=== PATIENT | female | born 1975 | race Caucasian/White ===

== ENCOUNTER 2022-07-08 10:44 | Emergency (ER) | payer OTHER, SELFPAY ==
--- NOTE | ~2022-07-08 | XR_ITS ---
EXAMINATION: XR abdomen/kub 1V DATE: 07/08/2022 12:32 INDICATION: Low abdominal pain. TECHNIQUE: A supine view of the abdomen on 2 radiographs was obtained. COMPARISON: None. FINDINGS: There is dilated small bowel in left abdomen. The colon is decompressed. There is a left in ternal ureteral stent in expected position. There is a lap band at the proximal stomach. Surgical cli ps in the right upper quadrant are likely from cholecystectomy. IMPRESSION: 1. Dilated small bowel, consistent with adynamic ileus versus small bowel obstruction. Reviewed, dictated and finalized at location A. NDANT CHILD ACTIVITY IMPRESSION: 1. Dilated small bowel, consistent with adynamic ileus versus small bowel obstr uction.
--- NOTE | ~2022-07-08 | CT_ITS ---
EXAMINATION: CT abdomen pelvis w con DATE: 07/08/2022 13:23 INDICATION: Abdominal pain. TECHNIQUE: Computed tomography (CT) of the abdomen and pelvis was performed with 100 mL Omnipaque 350 intravenous contrast. Automated exposure control and iterative reconstruction technique were employe d. The dose-length product was 1022.07 mGy-cm. COMPARISON: Abdomen radiographs 07/08/2022 FINDINGS: The visualized portions of the lung bases demonstrate mild atelectasis. No pleural effusion . The heart size is normal. No pericardial effusion. The liver is normal. There are changes of cholec ystectomy. The spleen, pancreas, adrenal glands, and right kidney are normal. There are two 2 mm ston es in left kidney. There is a left internal ureteral stent in expected position. There is diverticulo sis of the colon without evidence of diverticulitis. The appendix is normal. There is mildly dilated small bowel without focal transition point. There is a lap band around the proximal stomach. There ar e no pathologically enlarged lymph nodes. There is no free intraperitoneal fluid. There is mild thora columbar spondylosis. IMPRESSION: 1. Mildly dilated small bowel, likely adynamic embolus. 2. Small nonobstructing left kidney stones. Left internal ureteral stent in expected position. Reviewed, dictated and finalized at location A. S IDENTIFICATION TECHNICIAN IMPRESSION: 1. Mildly dilated small bowel, likely adynamic embolus. 2. Small nonobstructing left kidney stones. Left internal ureteral stent in exp ected position.
[2022-07-08 10:47] VITALS: BP 146/86; PULSE 81; RESP 16; TEMP 36.9; O2SAT 99
[2022-07-08 11:39] LABS: Add Urine Microscopic? YES; Appearance Urine Clear (Clear); Basophils Absolute Auto 0.1 K/mm3 (0.0-0.1); Basophils Percent Auto 1.1 % (0.2-1.2); Bilirubin Urine Negative (Negative); Blood Urine 2+ (Negative); Color Urine Straw (Yellow); Eosinophils Absolute Auto 0.4 K/mm3 (0-0.3); Eosinophils Percent Auto 4.7 % (0-4.4); Glucose Urine UA Negative (Negative); Hematocrit 46.3 % (37.0-47.0); Hemoglobin 14.7 g/dL (12.0-15.0); Immature Granulocyte Absolute 0.03 K/mm3 (0.00-0.031); Immature Granulocyte Percent A 0.4 % (0-0.5); Ketones Urine Negative (Negative); Leukocyte Esterase Ur 1+ LEU/UL (Negative); Lymphocytes Absolute Auto 2.53 K/mm3 (0.9-3.2); Lymphocytes Percent Auto 29.6 % (18.3-44.2); Mean Corpuscular HGB Conc 31.7 g/dl (32-36); Mean Corpuscular Hemoglobin 31.1 pg (26-34); Mean Corpuscular Volume 97.9 fl (80-100); Mean Platelet Volume 10.2 fl (7.4-10.4); Monocytes Absolute Auto 0.5 K/mm3 (0.1-0.6); Neutrophils Percent Auto 58.2 % (45.5-73.1); Nitrate Urine Negative (Negative); Platelet Count Result 304 k/mm3 (150-375); Protein Urine Negative (Negative); Red Blood Count 4.73 M/mm3 (4.2-5.4); Red Cell Distribution Width 14.1 % (11.5-14.5); Specific Grav Ur <= 1.005 (1.001-1.035); Urobilinogen Urine 0.2 mg/dL (<2.0); White Blood Count 8.6 K/mm3 (4.5-10.0)
[2022-07-08 11:58] LABS: Mucus Urine Rare /lpf; RBC Urine 0-2 /hpf (0-2); Squamous Epithelial Cell Urine Rare /hpf (Few)
--- NOTE | 2022-07-08 12:00 | ED.FEMALEGU ---
HPI - Female Genitourinary General Chief complaint: Urogenital-Female Stated complaint: pcp thinks i have an infected kidney stent Time Seen by Provider: 07/08/22 11:07 Source: patient Mode of arrival: ambulatory Limitations: no limitations History of Present Illness HPI Narrative: This is a 46 year old female that presents to the ER for low abdominal pain ongoing over the last couple of days. She had a left kidney stone for which she had lithotripsy and a stent placed. This was done at [facility] by Dr. Damon in the middle of June. She has follow up with her Urologist on the 12th of this month. Reports she was started on Cephalexin by urgent care for a possible UTI. Reports the burning pain she was having has resolved, but she is continuing to have low abdominal pain and flank pain. Denies fever or vomiting. Related Data Allergies Allergy/AdvReac Type Severity Reaction Status Date / Time No Known Allergies Allergy Verified 07/08/22 10:50 Review of Systems Review of Systems: CONSTITUTIONAL: Denies fever GASTROINTESTINAL: Reports abdominal pain. Denies nausea, vomiting GENITOURINARY: Denies dysuria or hematuria. All systems reviewed & are unremarkable except as noted in HPI and below PMFSH Past Medical History Medical History (Updated 07/08/22 @ 15:25 by Herminia Webster PA-C) History of anxiety History of gastroesophageal reflux (GERD) Social History Social History (Updated 07/08/22 @ 12:14 by Herminia Webster PA-C) Substance use: never Exam Narrative: GENERAL: Well-appearing, well-nourished, and in no acute distress. HEAD: Normocephalic, atraumatic. EYES: EOMI. CHEST: Clear to auscultation. No respiratory distress. No wheezes rales or rhonchi HEART: Regular rate and rhythm. No murmur heard. Normal peripheral pulses. ABDOMEN: Soft, nontender, nondistended, normal active bowel sounds. No CVA tenderness EXTREMITIES: Normal range of motion. No edema. SKIN: Warm, dry, no rash. NEURO: No focal deficits. Alert and oriented x3. PSYCH: Normal mood and affect Course Course Emergency Course: Patient was updated on workup. I was awaiting consult with her Urologist. She reports she no longer wishes to stay in the ED. She would like to be discharged and follow up as an outpatient Vital Signs Vital signs: Vital Signs Temperature 98.4 F 07/08/22 10:47 Pulse Rate 81 07/08/22 10:47 Respiratory Rate 16 07/08/22 10:47 Blood Pressure 146/86 H 07/08/22 10:47 Pulse Oximetry 99 07/08/22 10:47 Temperature 98.4 F 07/08/22 10:47 Pulse Rate 81 07/08/22 10:47 Respiratory Rate 16 07/08/22 10:47 Blood Pressure 146/86 H 07/08/22 10:47 Pulse Oximetry 99 07/08/22 10:47 MDM - Female Genitourinary MDM Narrative Medical decision making narrative: Patient presents to the ER for lower abdominal pain ongoing over the last couple of days. Recently had a lithotripsy and ureteral stent placed with urology [place]. She is afebrile and nontoxic-appearing. Her vitals are stable. Reports she was having some dysuria which has resolved after being started on Keflex by urgent care. CBC is without leukocytosis. Metabolic panel with normal kidney function. UA without overt evidence of infection. Just 1+ leuk esterase and 79 white blood cells. This will be sent for culture. Her lactic is negative. Abdomen x-ray shows findings consistent with small bowel obstruction versus adynamic ileus. CT scan abdomen and pelvis shows findings of adynamic ileus. Left internal ureteral stent is in expected position. Patient was updated on work-up. I was awaiting consult from her urologist. Reported she no longer wants to stay in the ER and would like to be discharged with continued outpatient follow-up. She was instructed to return at any time for further evaluation and management Differential Diagnosis Differential diagnosis: Likely urinary tract infection and other (ureteral stent pain) Medical Records Attestation: I rev
[2022-07-08 12:46] LABS: Anion Gap 6 mmol/L (8-16); Blood Urea Nitrogen 14 mg/dL (7-17); Calcium 8.9 mg/dL (8.4-10.2); Carbon Dioxide 24 mmol/L (22-30); Chloride 104 mmol/L (98-107); Estimated CRCL calculation 123 ml/min; Estimated Glomerular Filt Rate > 60; Glucose 90 mg/dL (65-110); Lactic Acid Reflex 0.9 mmol/L (0.7-2.0); Potassium 4.1 mmol/L (3.4-5.0); Sodium 134 mmol/L (137-145)
--- NOTE | 2022-07-08 15:00 | PC.NURSE ---
Awaiting return call from pt's urologist. Pt anxious to leave. Explained to pt that we were trying to contact her doctor.
== END 2022-07-08 15:34 | disposition home or self-care (01) ==
PROVIDERS: Emergency Provider Physician Assistant
DX: K56.0 Paralytic ileus (principal); R10.30 Lower abdominal pain, unspecified; Z96.0 Presence of urogenital implants; K21.9 Gastro-esophageal reflux disease without esophagitis; Z87.442 Personal history of urinary calculi
CPT/HCPCS: 36415; 74018; 74177; 80048; 81001; 83605; 85025; 87086; 99284; Q9967